=== PATIENT | female | born 1945 | race Caucasian/White ===

== ENCOUNTER → 2025-03-18 13:11 | Outpatient (REF) | payer MEDICARE, OTHER, SELFPAY ==
[2025-03-18 15:25] LABS: Erythrocyte Sed Rate 4 mm/hour (0-20)
[2025-03-18 16:13] LABS: C-Reactive Protein < 5.00 mg/L (0.0-10.00)
[2025-03-20 23:23] LABS: IgA 136 mg/dl (70-400)
[2025-03-21 01:29] LABS: Endomysial IgA Antibody Titer <1:10 (<1:10)
== END ==
LOC: REG 13:11
PROVIDERS: ATTENDING PHYSICIAN Internal Medicine Gastroenterology; FAMILY PHYSICIAN Family Medicine
DX: R10.32 Left lower quadrant pain (principal)
CPT/HCPCS: 36415; 74018; 82784; 83516; 85652; 86140; 86231

== ENCOUNTER → 2025-03-21 09:34 | Outpatient (REF) | payer MEDICARE, OTHER, SELFPAY | LOC: REG 09:34 | PROVIDERS: ATTENDING PHYSICIAN Internal Medicine Gastroenterology; FAMILY PHYSICIAN Family Medicine | DX: R10.32 Left lower quadrant pain (principal) | CPT/HCPCS: 82653; 82705; 83993; 87045; 87046; 87077; 87324; 87427; 87449; 89055 ==

== ENCOUNTER 2025-07-12 06:21 | Day surgery (SDC) | payer MEDICARE, OTHER, SELFPAY | END 2025-07-12 12:20 | disposition home or self-care (01) | LOC: GI 06:21 | PROVIDERS: ATTENDING PHYSICIAN Internal Medicine Gastroenterology | DX: R19.7 Diarrhea, unspecified (principal); K57.30 Diverticulosis of large intestine without perforation or abscess without bleeding; K62.3 Rectal prolapse | CPT/HCPCS: 45331; 88305; 88313 ==

== ENCOUNTER → 2025-09-15 14:05 | Outpatient (REF) | payer MEDICARE, OTHER, SELFPAY ==
[2025-09-15 16:25] LABS: Blood Urea Nitrogen 21 mg/dl (7-17); Calcium 9.0 mg/dl (8.4-10.2); Carbon Dioxide 27 mmol/L (22-30); Chloride 104 mmol/L (98-107); Potassium 4.5 mmol/L (3.5-5.1); Sodium 137 mmol/L (135-145); eGFR > 60.00
[2025-09-15 16:37] LABS: Glucose 90 mg/dl (70-99)
== END ==
LOC: REG 14:05
PROVIDERS: ATTENDING PHYSICIAN Nurse Practitioner; FAMILY PHYSICIAN Family Medicine
DX: R10.32 Left lower quadrant pain (principal)
CPT/HCPCS: 36415; 80048

== ENCOUNTER 2025-09-19 08:36 | Emergency (ER) | payer MEDICARE, OTHER, SELFPAY ==
[2025-09-19 08:36] VITALS: BMI 26.7
[2025-09-19 08:58] VITALS: BP 145/75
--- NOTE | 2025-09-19 09:11 | ED.GENMED ---
History of Present Illness
General
Chief Complaint: Abdominal Symptoms
Source: patient and records
Time Seen by Provider: 09/19/25 08:49
History of Present Illness
History of Present Illness:
80-year-old female with past medical history of hyperlipidemia and previous leukemia presenting to the emergency department for evaluation of GI concerns that have been ongoing since March, has had more generalized lower abdominal discomfort and
fatigue over the last week or so and despite a normal outpatient workup thus far patient was recommended by the GI team to come to the ER for CT scan today. Patient has seen Dr. Baxter from GI and Dr. Sheikh from colorectal surgery because she has
had a prolapsed rectum (had banding procedure performed), dietary modifications, sigmoidoscopy without any change in her symptoms or diagnoses made. Patient states that most of her symptoms are overall unchanged although states to me that today she
feels a little bit more fatigued than usual as well as some slight nausea. She denies any fevers, chills, rigors, lightheadedness, dizziness, back or flank pain. No recent travel, no known sick contacts and no recent antibiotics. Patient has done
stool studies as an outpatient and these were seemingly normal. Patient states that the amount of diarrhea/loose stool will wax and wane each day but when symptoms are at its worst she could go upwards of 5-6 times per day
Past History
Past History
ED Past Medical History: Cancer and Hypercholesterolemia
ED Past Surgical History: Gynecological
Social History
Tobacco: Non-smoker
Alcohol: None
Drug: None
Personal:
Living: alone
Review of Systems
Review of Systems
All Other Systems: ROS reviewed and negative except as documented in HPI and ROS
Phy Exam
Physical Exam
Physical Exam:
GENERAL: Alert , in no apparent distress
EYE: clear conjunctiva b/l
HEAD: NCAT
ENT: o/p clr, mmm.
CARDIAC: Regular rate and rhythm .
LUNGS: Clear breath sounds bilaterally, no acute respiratory distress, no wheezes/rales/rhonchi
ABDOMEN: Soft, without focal tenderness, no r/g, no cvat
NEUROLOGICAL: Alert and oriented
SKIN: Warm and dry, skin intact.
MUSCULOSKELETAL: No edema, well perfused.
PSYCH: Normal and appropriate interaction.
Scores
Heart Failure Risk
Heart Failure Risk Score: Not Applicable
Heart Score for Chest Pain Patients
STEMI patient?: Not applicable
Withdrawal Assessment of Alcohol
Withdrawal Assessment Completed?: Not applicable
Course
Orders/Labs/Results
Orders:
Orders
09/19/25 09:11
CT Abd/pel W Iv And Oral Contr Urgent
Comment:
Reason For Exam: generalized abd cramping, diarrhea
Iohexol [Omnipaque] See Protocol PO NOW STA
09/19/25 09:24
Urinalysis Reflex To Culture Urgent
Date Specimen was Collected: 09/19/25
Time Specimen was Collected: 09:19
Urine Microscopic Reflex Cult Urgent
Urine Culture Urgent
MARCELA Source: U
Specimen Description:
Date Specimen was Collected: 09/19/25
Time Specimen was Collected: 09:19
09/19/25 10:08
Complete Blood Count/With Diff Urgent
Comprehensive Metabolic Panel Urgent
Lipase Urgent
Abnormal Lab Results
09/19/25 09/19/25
09:24 10:08
MPV 11.0 H fL
(7.4-10.4)
Chloride 108 H mmol/L
(98-107)
Ur Occult Blood Reflex 2+ A
(Negative)
Leukocyte Esterase Rfl 3+ A
(Negative)
Urine RBC 21-25 A /HPF
(0-2)
Urine Bacteria (Reflex) Few A
(Negative)
Urine Albumin (Reflex) 2+ A
(Neg - Trace)
09/19/25 10:08
09/19/25 10:08
Vital Signs
Initial and Last Documented VS:
Initial Vital Signs
Temp
98.5 F
09/19/25 08:42
Last Documented Vital Signs
Temp Pulse Resp BP Pulse Ox
98.5 F 60 11 146/79 97
09/19/25 08:42 09/19/25 11:02 09/19/25 11:02 09/19/25 11:02 09/19/25 10:00
MDM/Problems Addressed
Differential Diagnosis Includes:
Colitis
IBS
IBD
Diverticulitis
Electrolyte Imbalance
Celiac Disease
Less concern for infectious colitis given longevity of symptoms/normal outpatient stool studies
MDM/Problems Addressed:
80-year-old female presenting to the emergency department for evaluation of loose stool/diarrhea since March, has had extensive outpatient workup without any specific etiologies found. Patient was recommended to come to the ER by GI due to reported
pain today with recommendation for CT scan to be completed. Will perform CT scan with oral and IV contrast. Will check labs however I do suspect that these will be unremarkable especially given the outpatient workup without any abnormalities.
Disposition pending with likely continued outpatient management needed.
*Radiology
Radiology exam reviewed: radiology read reviewed
*Pulse Oximetry
SaO2: 98
Oxygen Mode of Delivery: Room air
Patient hypoxic: no
*Critical Care Note
Total Time (30-74mins, 75-104mins- exclusive of procedures): Not Applicable
Data Reviewed
Review of Other/Old Records Reveals: Labs, Records, Testing and Progress Notes
Source: patient and records
Comment
Comment:
Notes per GI on outpatient visits:
Sep, Diarrhea, unspecified type (ICD-10 - R19.7) -All stool studies negative.-Flex sig negative for colitis.-Had colorectal surgery evaluation for prolapse, hemorrhoid banded.-Worse symptoms with raw fruits and vegetable. Improvement
with avoidance of these. -Also improvement using Metamucil. Gives her gas. Will change to Benefiber to see if this improves. -However despite this still with fecal incontinence and soilage.-Will proceed with anorectal manometry.-Further
recommendations after ARM. Likely will need PFT. -Patient also with history of urinary incontinence, frequency. States that she was seen by Dr. Halley Ledesma urogynecology in [place]. Was recommended to have pelvic floor therapy, further
testing and what sounds like an InterStim device. Patient would like to follow-up here with urogynecology. Names given.-Follow up with Dr. Frost in December.
Sep, Left lower quadrant abdominal pain (ICD-10 - R10.32) -Persistent LLQ pain, tender on exam. No alarm signs such as fevers, chills, night sweats, weight loss. -Also had this in the spring as well with normal CBC, BMP and TSH.-No
change with urination, defecation or twisting, turning, bending. -Hx of leukemia, states that she has a prior hx of splenomegaly in the past. Last imaging was in [place] over 3 yrs ago.-Will check BMP now-CT abd and pelvis with oral and IV contrast
ordered.
Patient Management
Discussion with other providers: [employer]
Escalation/DeEscalation of care consider admission/obs:
Patient CT scan without any acute abnormalities seen. At this time given the chronicity of her symptoms combined with lack of findings on today's workup I do think it is reasonable for her to be discharged home and continue her outpatient workup
with GI and colorectal surgery as needed. Patient aware of return precautions to the ER but otherwise stable for discharge home. I did notify patient's GI team about the CT scan findings and they are in agreement with the current treatment plan.
ED Attending Note
-
Portions of this chart may have been created with voice recognition software.� Occasional wrong word or��sound alike� substitutions may have occurred due to the inherent limitations of voice recognition software.
Discharge Plan
Departure
Patient Disposition: Home (Routine Discharge)
Date of Disposition: 09/19/25
Time of Disposition: 12:25
Patient with high blood pressure during this ER visit?: Yes
Discharge Problem:
Abdominal pain, Diarrhea
Instructions: Abdominal Pain
Referrals:
Sara Chavarria MD [Family Provider, Family Practice]
Interventions
Interventions:
*Risk Screen - Suicide Last Done: 09/19/25 08:43
*General Assessment Last Done: 09/19/25 08:43
*Neglect/Abuse Screening Last Done: 09/19/25 08:43
*ED- Fall Risk Assessment Last Done: 09/19/25 08:48
*ED COVID-19 Vaccine History Last Done: 09/19/25 08:54
*ED Influenza Vaccine History Last Done: 09/19/25 09:38
IR-Fbdbei-Mqhrncsuqu Assessment Last Done: 09/19/25 09:43
Discharge Date and Time
Print Language: TANZANIAN
[2025-09-19] MEDS: OMNIPAQUE 50 ML PO (09:29)
[2025-09-19 10:22] LABS: Hematocrit 39.7 % (37.0-47.0); Hemoglobin 13.6 g/dL (12.0-16.0); Mean Corp Hgb Conc. 34.3 g/dL (33.0-37.0); Mean Corpuscular Volume 87.1 fL (81.0-99.0); Nucleated Red Blood Cells % 0 %; Platelet Count 229 10^3/uL (130-400); Red Cell Dist. Width 13.1 % (11.5-14.5)
[2025-09-19 10:34] LABS: Urine Character Cloudy (Clear)
[2025-09-19 10:46] LABS: Urine Squamous Cell 26-30 /LPF (Few)
[2025-09-19 10:47] LABS: Urine Red Blood Cell 21-25 /HPF (0-2)
[2025-09-19 10:49] LABS: ALT (SGPT) 22 U/L (0-35); AST (SGOT) 27 U/L (14-36); Albumin 3.8 g/dl (3.5-5.0); Alkaline Phosphatase 51 U/L (38-126); Blood Urea Nitrogen 16 mg/dl (7-17); Calcium 8.9 mg/dl (8.4-10.2); Carbon Dioxide 24 mmol/L (22-30); Chloride 108 mmol/L (98-107); Estimated Creatinine Clearance 46 ml/min; Glucose 94 mg/dl (70-99); Lipase 40 U/L (23-300); Potassium 4.4 mmol/L (3.5-5.1); Sodium 136 mmol/L (135-145); Total Protein 6.5 g/dl (6.3-8.2); eGFR > 60.00
[2025-09-19 11:02] VITALS: BP 146/79
== END 2025-09-19 12:45 | disposition home or self-care (01) ==
LOC: EMR 08:36
PROVIDERS: Physician Assistant Medical; EMERGENCY PHYSICIAN Emergency Medicine; FAMILY PHYSICIAN Family Medicine
DX: R19.7 Diarrhea, unspecified (principal); R10.30 Lower abdominal pain, unspecified; E78.00 Pure hypercholesterolemia, unspecified; Z85.6 Personal history of leukemia
CPT/HCPCS: 99284; 74177; 80053; 81003; 81015; 83690; 85025; 87086; Q9967